=== PATIENT | male | born 2000 | race Caucasian/White ===

== ENCOUNTER → 2025-01-14 15:59 | Outpatient (REF) | payer OTHER, SELFPAY | LOC: HWRCS 15:59 | PROVIDERS: ATTENDING PHYSICIAN Internal Medicine Cardiovascular Disease; FAMILY PHYSICIAN Family Medicine | DX: R06.02 Shortness of breath (principal) | CPT/HCPCS: 93306 ==

== ENCOUNTER → 2025-01-20 07:43 | Outpatient (REF) | payer OTHER, SELFPAY | LOC: RCS 07:43 | PROVIDERS: ATTENDING PHYSICIAN Internal Medicine Cardiovascular Disease; FAMILY PHYSICIAN Family Medicine | DX: R07.89 Other chest pain (principal) | CPT/HCPCS: 93017 ==